=== PATIENT | female | born 1965 | race Two or more races ===

== ENCOUNTER 2018-12-09 11:44 | Outpatient (CLI) | payer OTHER ==
[~2018-12-09 11:44] MED LIST: NABUMETONE500 MG PO; PERCOCET 5/3251 TAB PO
== END 2018-12-09 15:30 | disposition home or self-care (01) ==
LOC: MRI 11:44
DX: M25.562 Pain in left knee (principal); M25.561 Pain in right knee; M25.572 Pain in left ankle and joints of left foot
CPT/HCPCS: 73721